=== PATIENT | male | born 1950 | race Caucasian/White ===

== ENCOUNTER 2020-07-08 00:17 | Outpatient (CLI) | payer MEDICARE, OTHER, SELFPAY ==
[2020-07-08 20:03] LABS: SARS-CoV-2 RNA PCR Negative
== END 2020-07-08 00:18 | disposition home or self-care (01) ==
LOC: ANHCOVIDDT 00:17
PROVIDERS: PCP Family Medicine; Visit Provider Internal Medicine Gastroenterology
DX: Z01.812 Encounter for preprocedural laboratory examination (principal); Z20.828 Contact with and (suspected) exposure to other viral communicable diseases
CPT/HCPCS: 87635; C9803; U0003

== ENCOUNTER 2020-07-10 01:10 | Day surgery (SDC) | payer MEDICARE, OTHER, SELFPAY ==
[2020-07-03 13:00] VITALS: BMI 22.1
[2020-07-10 07:52] VITALS: BP 120/76; PULSE 97; RESP 20; TEMP 36.8; O2SAT 100; BMI 21.4
[2020-07-10] MEDS: LACTATED RINGERS 1,000 ML 150 ML IV CONT (08:09)
--- NOTE | 2020-07-10 08:31 | WPDGICN ---
Assessment and Plan Assessment and plan (1) Ulcerative colitis: Code(s): K51.90 - Ulcerative colitis, unspecified, without complications Status: Acute Assessment and Plan: Plan is for surveillance colonoscopy now and every several years as well. (2) Weight loss: Code(s): R63.4 - Abnormal weight loss Status: Acute Assessment and Plan: Weight loss appears to correlate with change in diabetic diet medications. (3) History of colon polyps: Code(s): Z86.010 - Personal history of colonic polyps Status: Acute Assessment and Plan: Because of previous history of adenomatous colon polyp in history of right hemicolectomy. Colonoscopy at 3-5 year intervals is advised. (4) History of right hemicolectomy: Code(s): Z90.49 - Acquired absence of other specified parts of digestive tract Status: Acute GI Consult Note Consult date/time: 07/10/20 08:31 HPI: Scott Ralph is a 69 year old male seen in evaluation at the request of Dr Herman Araiza. Patient has a long history of ulcerative colitis. He also is found to be diabetic. Has a history of adenomatous colon polyp 3-4 years ago. He recently has lost 25 lb over last 6 months. During this interval of time there has been a change in his diabetic therapy including his diet. Patient has a recent diagnosis of lupus anticoagulant for which she see now sees Hematology. Past history is significant for large colon polyp requiring right hemicolectomy. Patient states his current weight appetite bowel movements are normal. Current medications include Imuran 100 mg p.o. daily. He also takes sulfasalazine 2000 mg p.o. t.i.d.. Spironolactone 50 mg p.o. daily finasteride. And multiple eyedrops. Review of Systems Review of Systems: All systems reviewed & are unremarkable except as noted in HPI and below PMFSH Social History Social History Smoking status: Never smoker Alcohol intake: never Substance use: never Substance use type: does not use Living arrangements: with family Meds Home Medications and Allergies Home Medications Medication Instructions Recorded Confirmed Type albuterol sulfate 1 puff INHALATION QID PRN 07/03/20 07/03/20 History aspirin 81 mg PO DAILY 07/03/20 07/03/20 History azathioprine [Imuran] 100 mg PO DAILY 07/03/20 07/03/20 History brimonidine 1 drp RIGHTEYE TID 07/03/20 07/03/20 History dorzolamide-timolol (PF) [Cosopt 1 drp BID 07/03/20 07/03/20 History (PF)] finasteride 5 mg PO DAILY 07/03/20 07/03/20 History folic acid 1 mg PO DAILY 07/03/20 07/03/20 History spironolactone [Aldactone] 50 mg PO DAILY 07/03/20 07/03/20 History sulfasalazine 2,000 mg TID 07/03/20 07/03/20 History tafluprost (PF) [Zioptan (PF)] 1 drp RIGHTEYE DAILY 07/03/20 07/03/20 History tiotropium bromide [Spiriva 2 puff INHALATION DAILY 07/03/20 07/03/20 History Respimat] Allergies Allergy/AdvReac Type Severity Reaction Status Date / Time Anti-Fungal Allergy Rash Uncoded 07/10/20 07:50 Vital Signs Vital Signs - 24 hr 07/10/20 07:52 Temperature 98.3 F Pulse Rate 97 Respiratory Rate 20 Blood Pressure 120/76 Pulse Oximetry 100 Exam Narrative: Exam Narrative: Physical exam reveals patient to be alert. Vital signs stable. HEENT exam unremarkable. 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 Lungs are clear to auscultation and percussion. Heart is without murmur or extra sounds. Abdominal exam bowel sounds are present soft nontender with no hepatosplenomegaly. Digital external rectal exam normal.
--- NOTE | 2020-07-10 08:43 | WPDANESEPPF ---
Anes - Initial Pre Proc Eval Procedure: Operation Date: 07/10/20 08:30 Proposed Procedures p Colonoscopy - Aleksey Odell MD Date/Time: 07/10/20 08:43 Surgeon: Aleksey Odell MD Pre Op Diagnosis: Ulcerative Colitis/ Weight Loss/ Hx Colon Polyps Patient Data Age: 69 Gender: M Height: 6 ft Weight: 71.6 kg Last Vital Signs Temp 98.3 F 07/10/20 07:52 Pulse 97 07/10/20 07:52 Resp 20 07/10/20 07:52 BP 120/76 07/10/20 07:52 Pulse Ox 100 07/10/20 07:52 Allergies Allergy/AdvReac Type Severity Reaction Status Date / Time Anti-Fungal Allergy Rash Uncoded 07/10/20 07:50 Home Medications Medication Instructions Recorded Confirmed Type albuterol sulfate 1 puff INHALATION QID PRN 07/03/20 07/03/20 History aspirin 81 mg PO DAILY 07/03/20 07/03/20 History azathioprine [Imuran] 100 mg PO DAILY 07/03/20 07/03/20 History brimonidine 1 drp RIGHTEYE TID 07/03/20 07/03/20 History dorzolamide-timolol (PF) [Cosopt 1 drp BID 07/03/20 07/03/20 History (PF)] finasteride 5 mg PO DAILY 07/03/20 07/03/20 History folic acid 1 mg PO DAILY 07/03/20 07/03/20 History spironolactone [Aldactone] 50 mg PO DAILY 07/03/20 07/03/20 History sulfasalazine 2,000 mg TID 07/03/20 07/03/20 History tafluprost (PF) [Zioptan (PF)] 1 drp RIGHTEYE DAILY 07/03/20 07/03/20 History tiotropium bromide [Spiriva 2 puff INHALATION DAILY 07/03/20 07/03/20 History Respimat] Patient hx anesthesia problems: none Family hx anesthesia problems: none PMFSH Past Medical History Medical History (Updated 07/10/20 @ 08:43 by Vince Vernon MD) COPD (chronic obstructive pulmonary disease) Prostate cancer SLE (systemic lupus erythematosus related syndrome) Social History Social History Smoking status: Never smoker Alcohol intake: never Substance use: never Substance use type: does not use Living arrangements: with family Sonny Wayne Final PreProcedure Day of Procedure 07/10/20 08:43 Patient weight: normal Heart: regular rate and rhythm Lungs: clear to auscultation Airway: Mallampati scale class III Neurological: alert and oriented Last oral intake: >/= 8 hours ASA classification: III Emergent: no Anesthetic plan: proceed Anesthesia type and monitoring: general GIVS and standard monitoring Informed Consent: The patient's anesthetic plan and its attendant risks and benefits were discussed with the patient/family/POA. Questions were solicited and answers provided to the satisfaction of the patient/family/POA.
[2020-07-10 09:05] VITALS: BP 76/49; PULSE 66; RESP 18; O2SAT 99
[2020-07-10 09:15] VITALS: BP 75/43; PULSE 63; RESP 18; O2SAT 100
[2020-07-10 09:25] VITALS: BP 90/48; PULSE 62; RESP 18; O2SAT 100
== END 2020-07-10 09:38 | disposition home or self-care (01) ==
PROVIDERS: PCP Family Medicine; Visit Provider Internal Medicine Gastroenterology
PROC: 0DJD8ZZ Inspection of Lower Intestinal Tract, Via Natural or Artificial Opening Endoscopic (ICD-10-PCS; CPT 45378; principal; 2020-07-10 08:30)
DX: K51.00 Ulcerative (chronic) pancolitis without complications (principal); D12.5 Benign neoplasm of sigmoid colon; K64.8 Other hemorrhoids; R63.4 Abnormal weight loss; Z90.49 Acquired absence of other specified parts of digestive tract; Z98.0 Intestinal bypass and anastomosis status; M32.9 Systemic lupus erythematosus, unspecified; J44.9 Chronic obstructive pulmonary disease, unspecified; Z85.46 Personal history of malignant neoplasm of prostate; Z79.82 Long term (current) use of aspirin
CPT/HCPCS: 45380; 45385; 88305; J2704; J7120

== ENCOUNTER 2021-07-29 10:48 | Outpatient (CLI) | payer MEDICARE, OTHER, SELFPAY ==
[2021-07-29 11:37] LABS: Hematocrit 43.1 % (42.0-52.0); Hemoglobin 14.1 g/dL (14.0-18.0); Mean Corpuscular HGB Conc 32.7 g/dl (32-36); Mean Corpuscular Hemoglobin 33.8 pg (26-34); Mean Corpuscular Volume 103.4 fl (80-100); Mean Platelet Volume 10.2 fl (7.4-10.4); Platelet Count Result 165 k/mm3 (150-375); Red Blood Count 4.17 M/mm3 (4.6-6.20); Red Cell Distribution Width 12.9 % (11.5-14.5); White Blood Count 7.4 K/mm3 (4.5-10.0)
[2021-07-29 11:55] LABS: Alanine Aminotransferase 21 U/L (4-50); Albumin Level 4.4 g/dL (3.5-5.1); Alkaline Phosphatase 58 U/L (38-126); Anion Gap 7 mmol/L (8-16); Aspartate Amino Transferase 28 U/L (17-59); Bilirubin,Total 0.5 mg/dL (0.2-1.3); Blood Urea Nitrogen 21 mg/dL (9-20); CRP < 0.5 mg/dL (<1.0); Calcium 9.5 mg/dL (8.4-10.2); Carbon Dioxide 29 mmol/L (22-30); Chloride 105 mmol/L (98-107); Estimated Glomerular Filt Rate > 60; Glucose 129 mg/dL (65-110); Potassium 4.1 mmol/L (3.4-5.0); Sodium 141 mmol/L (137-145)
[2021-07-29 13:51] LABS: Erythrocyte Sedimentation Rate 18 mm/hr (0-20)
== END 2021-07-29 10:49 | disposition home or self-care (01) ==
PROVIDERS: PCP Family Medicine; Visit Provider Nurse Practitioner Family
DX: K51.90 Ulcerative colitis, unspecified, without complications (principal)
CPT/HCPCS: 36415; 80053; 85027; 85652; 86140

== ENCOUNTER 2021-08-04 16:55 | Outpatient (NON) | payer MEDICARE, OTHER, SELFPAY ==
[2021-08-11 21:11] LABS: Calprotectin, Stool 413 mcg/g
== END 2021-08-04 16:56 | disposition home or self-care (01) ==
PROVIDERS: PCP Family Medicine; Visit Provider Nurse Practitioner Family
DX: K51.90 Ulcerative colitis, unspecified, without complications (principal)
CPT/HCPCS: 83993